=== PATIENT | male | born 1965 | race Caucasian/White ===

== ENCOUNTER 2024-02-11 13:48 | Observation (INO) | payer OTHER, SELFPAY ==
[2024-02-11] VITALS (12 sets, daily range): BP systolic 131–168; BP diastolic 75–95; PULSE 61–77; RESP 15–24; TEMP 35.9–36.8; O2SAT 95–100; BMI 31.1; BMI 30.4
[2024-02-11 14:13] LABS: Absolute Lymphocyte Count 3.08 X10^3/uL (0.83-4.51); Absolute Neutrophil Count 6.6 X10^3/uL (2.0-7.7); Basophil# 0.03 X10^3/uL; Basophil% 0.3 % (0-1); Eosinophil# 0.05 X10^3/uL; Eosinophils% 0.5 % (0-5); Hematocrit 43.8 % (40-54); Hemoglobin 14.9 g/dL (13.0-16.5); Lymphocyte # 3.08 X10^3/ul (0.83-4.51); Lymphocyte % 28.9 % (19-41); Mean Corpuscular Hgb 29.4 pg (27.0-32.0); Mean Corpuscular Volume 86.4 fL (80-94); Mean Platelet Vol. 10.1 fl (6.2-12.0); Monocyte# 0.82 X10^3/uL; Monocyte% 7.7 % (0-10); NRBC Flagged by Analyzer 0 % (0-5); Neutrophil # 6.62 X10^3/uL (2.7-7.7); Neutrophil % 62.1 % (47-70); Platelet Count 210 K/mm3 (150-450); RBC Distribution Width CV 13.1 % (11.6-14.6); Red Blood Count 5.07 M/mm3 (4.6-6.2); White Blood Count 10.7 K/mm3 (4.4-11.0)
[2024-02-11 14:25] LABS: Bedside Glucose 155 mg/dL (74-106)
[2024-02-11 14:29] LABS: Prothrombin Time (Protime)PT. 13.2 SECONDS (11.7-14.9)
[2024-02-11 14:30] LABS: Partial Thromboplast Time 24.7 Seconds (24.1-36.2)
[2024-02-11] MEDS: 0.9% Saline Lock 10 ML Syringe IV (14:31)
[2024-02-11 14:49] LABS: Anion Gap 8 (5-15); BUN 26 mg/dL (7-18); BUN/Creat Ratio 31.9 RATIO (10-20); Chloride 111 mmol/L (98-107); Creatinine, Serum 0.82 mg/dL (0.70-1.30); EST Glomerular Filtration Rate 102 mL/min (>60); Est Glom Filt Rate - Afr Amer 124 mL/min (>60); Glucose 156 mg/dL (74-106); Potassium 3.4 mmol/L (3.5-5.1); Sodium Level 141 mmol/L (136-145); Troponin-I HS 338 pg/mL (3.0-78.0)
[2024-02-11] MEDS: Aspirin 81 MG TAB.CHEW 324 MG PO (14:58)
[2024-02-11 15:31] LABS: Bacteria 0 SEEN /hpf (None Seen); Mucous, Urine 0 SEEN /hpf (<or=2+); Squamous Epithelial Cells - UA 0 SEEN /hpf (0-5)
[2024-02-11 15:35] LABS: Color, Urine Yellow (Yellow); Glucose, Dipstick Normal (Normal); Ketone-Dipstick 15 mg/dl (Negative); Leukocyte Esterase-Dipstick Negative /ul (Negative); Nitrite-Dipstick Negative (Negative); Occult Blood-Urine Negative /ul (Negative); Protein-Dipstick Negative (Negative); Urine Bilirubin Dipstick Negative (Negative); Urine Clarity Clear (Clear); Urine Urobilinogen Normal (Normal)
[2024-02-11 16:01] LABS: Phosphorus 2.8 mg/dL (2.5-4.9)
[2024-02-11 16:17] LABS: Red Blood Cells-Urine 0 SEEN /hpf (0-5); White Blood Cells 0-5 SEEN /hpf (0-5)
[2024-02-11 20:02] LABS: Hemoglobin A1c 6.5 % (3.8-5.6)
[2024-02-11 20:30] LABS: Troponin-I HS 387 pg/mL (3.0-78.0)
[2024-02-11] MEDS: Atorvastatin Calcium 80 MG Tablet PO (22:01)
[2024-02-12] VITALS (10 sets, daily range): BP systolic 141–154; BP diastolic 86–98; PULSE 66–95; RESP 14–18; TEMP 35.9–36.9; O2SAT 95–99; BMI 30.4
[2024-02-12] MEDS: Aspirin 81 MG TAB.CHEW PO (05:46)
[2024-02-12 06:24] LABS: Hematocrit 40.6 % (40-54); Hemoglobin 13.9 g/dL (13.0-16.5); Mean Corp Hgb Conc 34.2 g/dL (32-36); Mean Corpuscular Hgb 29.9 pg (27.0-32.0); Mean Corpuscular Volume 87.3 fL (80-94); Mean Platelet Vol. 10.6 fl (6.2-12.0); Platelet Count 191 K/mm3 (150-450); RBC Distribution Width CV 13.3 % (11.6-14.6); RBC Distribution Width SD 42.4 fl (35.1-43.9); Red Blood Count 4.65 M/mm3 (4.6-6.2); White Blood Count 7.4 K/mm3 (4.4-11.0)
[2024-02-12 06:56] LABS: Anion Gap 5 (5-15); BUN 25 mg/dL (7-18); BUN/Creat Ratio 39.3 RATIO (10-20); Calcium,Total 8.4 mg/dL (8.5-10.1); Chloride 110 mmol/L (98-107); Cholesterol 179 mg/dL (200); Creatinine, Serum 0.64 mg/dL (0.70-1.30); EST Glomerular Filtration Rate 137 mL/min (>60); Est Glom Filt Rate - Afr Amer 165 mL/min (>60); Estimated Creatinine Clearance 125.76 ml/min; Glucose 106 mg/dL (74-106); High Density Lipoprotein 71 mg/dL; Potassium 3.5 mmol/L (3.5-5.1); Sodium Level 140 mmol/L (136-145); Triglycerides 94 mg/dL; Very Low Density Lipoprotein 19 mg/dL (5-40)
[2024-02-12] MEDS: Acetaminophen 325 MG Tablet 650 MG PO (09:05)
== END 2024-02-12 14:28 | disposition home or self-care (01) ==
LOC: ED 14:58 → PCU 16:38
PROVIDERS: Admitting Provider Hospitalist; Emergency Provider Emergency Medicine; PCP Physician Assistant; Visit Provider Internal Medicine
DX: I42.8 Other cardiomyopathies (principal); R26.2 Difficulty in walking, not elsewhere classified; I44.7 Left bundle-branch block, unspecified; R11.0 Nausea; I10 Essential (primary) hypertension; R06.02 Shortness of breath; Z79.899 Other long term (current) drug therapy; H81.4 Vertigo of central origin; E66.9 Obesity, unspecified; Z68.30 Body mass index [BMI] 30.0-30.9, adult
CPT/HCPCS: 36415; 51702; 70450; 70496; 70498; 70551; 71045; 80048; 80061; 81001; 82962; 83036; 83735; 84100; 84443; 84484; 85025; 85027; 85610; 85730; 93005; 93306; 93458; 94762; 97162; 97802; 99152; 99153; 99221; 99285; J3101; J7040; Q9967; A4216; C1769; C1894; G0378

== ENCOUNTER 2024-03-05 15:23 | Emergency (ER) | payer SELFPAY ==
[2024-03-05 15:23] VITALS: BP 148/82; PULSE 121; RESP 24; TEMP 38.1; O2SAT 93
[2024-03-05 15:28] VITALS: O2SAT 97
--- NOTE | 2024-03-05 15:29 | EKG12_ITS ---
Test Reason : SOB Blood Pressure : */* mmHG Vent. Rate : 109 BPM Atrial Rate : 109 BPM P-R Int : 150 ms QRS Dur : 170 ms QT Int : 380 ms P-R-T Axes : 58 0 169 degrees QTcB Int : 511 ms Sinus tachycardia Possible Left atrial enlargement Left bundle branch block Abnormal ECG Confirmed by Carroll Levi ([id number]), photography editor DWAIN GONZALEZ ([id number]) on 03/08/2024 6:43:14 AM Referred By: Confirmed By: Carroll Levi
[2024-03-05 16:20] LABS: Absolute Lymphocyte Count 1.07 X10^3/uL (0.83-4.51); Absolute Neutrophil Count 8.3 X10^3/uL (2.0-7.7); Basophil# 0.04 X10^3/uL; Basophil% 0.4 % (0-1); Eosinophil# 0.05 X10^3/uL; Eosinophils% 0.5 % (0-5); Hematocrit 44.2 % (40-54); Hemoglobin 15.2 g/dL (13.0-16.5); Lymphocyte # 1.07 X10^3/ul (0.83-4.51); Lymphocyte % 10.7 % (19-41); Mean Corp Hgb Conc 34.4 g/dL (32-36); Mean Corpuscular Hgb 29.9 pg (27.0-32.0); Mean Corpuscular Volume 86.8 fL (80-94); Mean Platelet Vol. 9.6 fl (6.2-12.0); Monocyte# 0.47 X10^3/uL; Monocyte% 4.7 % (0-10); NRBC Flagged by Analyzer 0 % (0-5); Neutrophil # 8.27 X10^3/uL (2.7-7.7); Neutrophil % 83.1 % (47-70); Platelet Count 201 K/mm3 (150-450); RBC Distribution Width CV 12.8 % (11.6-14.6); RBC Distribution Width SD 40.6 fl (35.1-43.9); Red Blood Count 5.09 M/mm3 (4.6-6.2)
--- NOTE | 2024-03-05 16:20 | EX.ED.DYSGE1 ---
HPI History of Present Illness Chief Complaint: Shortness of Breath Informant: patient, spouse/S.O. and family Narrative Narrative: Presents here spouse and daughter worsening symptoms. Upper respiratory symptoms approximately past week productive sputum. Today while at work symptoms worsen he had to leave at noon. Reports myalgias with nausea. No vomiting no diarrhea. No urinary symptoms. He denies fevers however reports feeling cold. Denies sick contacts. They report he was hospitalized 3 weeks ago found to have cardiomyopathy with heart cath that had no intervention. He was placed on Coreg. He is already on lisinopril for history of hypertension. They report that they were told cardiomyopathy could have been from COVID few years ago. [facility] Medical History Non-ST elevated myocardial infarction Dizziness of unknown cause Abnormal EKG Dyspnea on exertion Home Medications ?Medication ?Instructions ?Recorded ?Last Taken ?Type soybean, fermented 2 cap PO DAILY natural blood 02/11/24 Unknown History thinner carvedilol 6.25 mg tablet 6.25 mg PO BID #60 tabs 02/12/24 Unknown Rx losartan 50 mg tablet 50 mg PO DAILY #30 tabs 02/12/24 Unknown Rx doxycycline monohydrate 100 mg 100 mg PO BID #14 CAPSULES 03/05/24 Unknown Rx capsule Allergy/AdvReac Type Severity Reaction Status Date / Time lisinopril Allergy Hives Verified 03/05/24 15:28 Surgical History No history of previous surgery Social History Smoking Status: Never smoker ROS ROS ED Constitutional Constitutional ED: Reports chills; Denies fever(s) or sweats Eyes Eyes: Denies change in vision ENT ENT ED: Denies dysphagia or sore throat Cardiovascular Cardiovascular: Denies chest pain, leg edema, palpitations or racing heartbeat Respiratory/Chest Respiratory/Chest: Reports cough; Denies dyspnea or dyspnea on exertion Gastrointestinal Gastrointestinal: Reports nausea; Denies abdominal pain, diarrhea or vomiting Genitourinary Genitourinary ED: Denies dysuria, hematuria or urinary frequency Musculoskeletal Musculoskeletal: Reports myalgias; Denies back pain, extremity pain or neck pain Integumentary Denies rash or wounds Neurologic Neurologic: Denies headache(s), paresthesias or weakness EXAM Physical Exam Const Vital Signs: 03/05/24 15:23 03/05/24 15:28 03/05/24 15:28 Temperature 100.6 F H Temperature Source Oral Pulse Rate 121 H Respiratory Rate 24 H Respiratory Effort Respiratory Depth Respiratory Pattern Blood Pressure 148/82 H Blood Pressure Mean 104 Pulse Ox 93 97 Oxygen Delivery Method Room Air Room Air Room Air 03/05/24 16:27 03/05/24 16:39 03/05/24 17:00 Temperature 101.3 F H 100.8 F H Temperature Source Oral Oral Pulse Rate 116 H 113 H Respiratory Rate 18 18 Respiratory Effort Short of Breath Respiratory Depth Normal Respiratory Pattern Normal Blood Pressure 149/82 H 133/79 H Blood Pressure Mean 104 97 Pulse Ox 97 93 Oxygen Delivery Method Room Air Room Air 03/05/24 19:15 Temperature 98 F Temperature Source Pulse Rate 81 Respiratory Rate 16 Respiratory Effort Respiratory Depth Respiratory Pattern Blood Pressure 92/70 Blood Pressure Mean 77 Pulse Ox 94 Oxygen Delivery Method Positive well nourished and well developed Constitutional Narrative: Nontoxic. Fatigued General Appearance ED: well developed HEENT Reports moist mucous membranes normocephalic and atraumatic Eyes EOMs intact bilaterally and conjunctivae normal General Eye ED: Yes normal appearance of both eyes Neck no lymphadenopathy and supple General: Negative for tenderness Chest Wall Chest: Negative for tenderness Resp normal respiratory effort and normal air movement Effort and Inspection: symmetric chest movement; Negative for respiratory distress Cardio regular rhythm and no murmurs Rate: tachycardic Peripheral Pulses: pulses 2+ throughout GI normal to inspection, nondistended, normoactive bowel sounds and non-tender Palpation: Negative for guarding or rebound tenderness present Back/Spine no CVA tenderness and no thoracic nor lumbar tenderness Extremity normal to inspection General Extremety ED: Negative for edema or tenderness General Extremity: Negative for edema Neuro oriented x3 and no sensory deficits noted Sensorium / Orientation: awake and alert Skin no rashes or lesions noted and no wounds MDM MDM MDM Narrative Medical decision making narrative: Interventions / MDM: Differential diagnosis: Pneumonia Diagnosis considered but do not suspect: ACS however EKG and cardiac enzymes negative. My EKG interpretation: Sinus rate of 109, no ST changes, there is left bundle branch block similar to previous. Imaging independently reviewed and interpreted by myself: 1 view chest x-ray bibasilar lobe pneumonia. External documents reviewed: 02/12/2024. Cardiac cath normal coronary arteries EF of 15%. Test considered but not ordered:N/A ED course: Patient low-grade fever 100.6 tachycardic slight tachypnea. Nursing protocol initially some orders, added sepsis labs as he meets SIRS criteria. He has had more of a cough and increasing myalgias today. Chest x-ray, respiratory swabs. Tylenol ordered Zofran ordered. 1800: Chest x-ray lower lobe pneumonia white count normal lactic acid normal. Urine negative for infection. Potassium was 3.1 sodium 138. Creatinine 1.06. Oral potassium ordered. Blood cultures are in the lab and pending. Slight elevation in AST ALT at 70 and 72 respectively. COVID, influenza, RSV negative. Patient was ambulated pulse ox 91 to 92%. He states he was not short of breath. Meet SIRS criteria with pneumonia. Normal lactic acid. Is not clinically septic. Considered admission with the patient, however he states he would like to be treated at home. At this time with pulse ox above 88 with no dyspnea, I do feel this is reasonable. He was given IV doxycycline for coverage. He will be continued on doxycycline. He will continue Tylenol as needed for fever. He will continue oral fluids. Return precaution discussed. All questions were answered. Re-evaluation: stable Disposition discussed with patient/family/significant other: Patient and family Case discussed with consulting clinician: N/A This note was generated with [employer] dictation software. It may contain incorrect words, spelling, and punctuation that were not noted in checking the note before signing. Lab Data Attestation: I reviewed the patient's lab results. Labs: Laboratory Results - last 24 hr 03/05/24 03/05/24 16:13 16:35 WBC 10.0 RBC 5.09 Hgb 15.2 Hct 44.2 MCV 86.8 MCH 29.9 MCHC 34.4 RDW Std Deviation 40.6 RDW Coeff of Janet 12.8 Plt Count 201 MPV 9.6 Immature Gran % (Auto) 0.600 Neut % (Auto) 83.1 H Lymph % (Auto) 10.7 L Fannin % (Auto) 4.7 Eos % (Auto) 0.5 Baso % (Auto) 0.4 Absolute Neuts (auto) 8.3 H Absolute Lymphs (auto) 1.07 Nucleated RBC % 0 PT 13.9 INR 1.1 APTT 26.5 Sodium 138 Potassium 3.1 L Chloride 105 Carbon Dioxide 26.0 Anion Gap 7 BUN 21 H Creatinine 1.06 Est GFR (MDRD) Af Amer 92 Est GFR (MDRD) Non-Af 76 BUN/Creatinine Ratio 19.8 Glucose 153 H Lactic Acid 1.4 Calcium 8.7 Total Bilirubin 0.60 Direct Bilirubin 0.19 AST 70 H ALT 72 H Alkaline Phosphatase 63 Troponin I High Sens 44 Total Protein 6.3 L Albumin 3.3 Globulin 3.0 Procalcitonin 0.36 H Urine Color Yellow Urine Clarity Clear Urine pH 6.0 Ur Specific [place] 1.010 Urine Protein Negative Urine Glucose (UA) Normal Urine Ketones Negative Urine Occult Blood Negative Urine Nitrite Negative Urine Bilirubin Negative Urine Urobilinogen Normal Ur Leukocyte Esterase Negative Urine RBC 0 SEEN Urine WBC 0-5 SEEN Ur Squamous Epith Cells 0 SEEN Urine Bacteria 0 SEEN Urine Mucus 0 SEEN Radiography Diagnostic Testing: Clinical Impression(s) from Imaging Studies Chest X-Ray 03/05/24 16:35 IMPRESSION: Bilateral lower lobe infiltrates Electronically Signed: Escobar Calderon MD at 17:02 EST Reading Location ID and State: [address] [place] [address] Tel , Service support , Discharge Plan Triage Chief Complaint: Shortness of Breath ED Provider: Hector Turcios Dx/Rx/DC Orders Clinical Impression: Pneumonia, Fever, Cough, Left bundle branch block, Hypokalemia Instructions: ED Fever Control (Adult), ED Pneumonia (Adult) Prescriptions: New doxycycline monohydrate 100 mg capsule 100 mg PO BID Qty: 14 0RF No Action soybean, fermented [Nattokinase] 2 cap PO DAILY carvedilol 6.25 mg tablet 6.25 mg PO BID Qty: 60 1RF Rx Instructions: must administer with a meal/food losartan 50 mg tablet 50 mg PO DAILY Qty: 30 1RF Stand Alone Forms: ED Work / School Excuse Primary Care Provider: Maurice Vegas Referrals: Maurice Vegas PA-C [Primary Care Provider] - 3-5 Days Activity Restrictions/Additional Instructions: X-ray with lower lobe pneumonia. Your white count normal. COVID, flu, RSV negative. Take and finish antibiotic as prescribed. Continue Tylenol as needed for fever. Continue oral fluids for hydration. You develop worsening dyspnea, return to the ED for reevaluation. Print Language: Romansh Disposition Disposition: Home, Self Care Discharge Date/Time: 03/05/24 19:44
[2024-03-05 16:27] VITALS: BP 149/82; PULSE 116; RESP 18; TEMP 38.5; O2SAT 97
--- NOTE | 2024-03-05 16:35 | RAD_ITS ---
STUDY: X-RAY CHEST REASON FOR EXAM: Male, 58 years old. SOB TECHNIQUE: AP portable COMPARISON: February 11, 2024 FINDINGS: Bibasilar infiltrates.. There is no demonstrated pleural abnormality. Heart is enlarged.. Normal mediastinum and rosette. Normal visualized pulmonary arteries. Normal visualized aortic arch and descending thoracic aorta. Dorsal spine demonstrates degenerative change. Normal visualized ribs, clavicles, and shoulders. There is no demonstrated abnormality of the visualized soft tissue structures of the upper abdomen. RAD/Chest 1 View (Portable) IMPRESSION: Bilateral lower lobe infiltrates Electronically Signed: Escobar Calderon MD at 17:02 EST ,
[2024-03-05 16:37] LABS: Anion Gap 7 (5-15); BUN 21 mg/dL (7-18); BUN/Creat Ratio 19.8 RATIO (10-20); Calcium,Total 8.7 mg/dL (8.5-10.1); Chloride 105 mmol/L (98-107); Creatinine, Serum 1.06 mg/dL (0.70-1.30); EST Glomerular Filtration Rate 76 mL/min (>60); Est Glom Filt Rate - Afr Amer 92 mL/min (>60); Glucose 153 mg/dL (74-106); Potassium 3.1 mmol/L (3.5-5.1); Sodium Level 138 mmol/L (136-145); Troponin-I HS 44 pg/mL (3.0-78.0)
[2024-03-05 16:40] LABS: AST(SGOT) 70 U/L (15-37); Alanine Aminotransfer ALT/SGPT 72 U/L (16-61); Albumin, Serum 3.3 g/dL (3.2-5.0); Alkaline Phosphatase 63 U/L (45-117); Bilirubin, Direct 0.19 mg/dL (0.00-0.30); Protein, Total 6.3 g/dL (6.4-8.2)
[2024-03-05 16:47] LABS: Bacteria 0 SEEN /hpf (None Seen); Mucous, Urine 0 SEEN /hpf (<or=2+); Red Blood Cells-Urine 0 SEEN /hpf (0-5); Squamous Epithelial Cells - UA 0 SEEN /hpf (0-5)
[2024-03-05 16:52] LABS: Color, Urine Yellow (Yellow); Glucose, Dipstick Normal (Normal); Ketone-Dipstick Negative (Negative); Leukocyte Esterase-Dipstick Negative /ul (Negative); Nitrite-Dipstick Negative (Negative); Occult Blood-Urine Negative /ul (Negative); Protein-Dipstick Negative (Negative); Urine Bilirubin Dipstick Negative (Negative); Urine Clarity Clear (Clear); Urine Urobilinogen Normal (Normal)
[2024-03-05 17:00] VITALS: BP 133/79; PULSE 113; RESP 18; TEMP 38.2; O2SAT 93
[2024-03-05 17:02] LABS: International Normalized Ratio 1.1; Prothrombin Time (Protime)PT. 13.9 SECONDS (11.7-14.9)
[2024-03-05 17:03] LABS: Partial Thromboplast Time 26.5 Seconds (24.1-36.2)
[2024-03-05 17:07] LABS: White Blood Cells 0-5 SEEN /hpf (0-5)
[2024-03-05] MEDS: Acetaminophen 500 MG Tablet 1000 MG PO (17:14)
[2024-03-05] MEDS: Ondansetron 4 MG/2 ML Vial IV (17:14)
[2024-03-05 17:15] LABS: Procalcitonin 0.36 ng/mL (0.00-0.09)
[2024-03-05 17:19] LABS: Lactic Acid 1.4 mmol/L (0.4-1.9)
[2024-03-05 17:59] VITALS: O2SAT 92
[2024-03-05] MEDS: Doxycycline 100 MG in Dextrose 5%-Water (250mL Bag) 250 ML 250 MG IV (18:27)
[2024-03-05] MEDS: Potassium Chloride Oral Tablet 20 MEQ 40 MEQ PO (18:29)
[2024-03-05 19:15] VITALS: BP 92/70; PULSE 81; RESP 16; TEMP 36.6; O2SAT 94
== END 2024-03-05 19:44 | disposition home or self-care (01) ==
PROVIDERS: Emergency Provider Emergency Medicine; PCP Physician Assistant; Visit Provider Emergency Medicine
DX: J18.9 Pneumonia, unspecified organism (principal); I44.7 Left bundle-branch block, unspecified; E87.6 Hypokalemia; I10 Essential (primary) hypertension; I25.2 Old myocardial infarction; Z79.899 Other long term (current) drug therapy; Z86.16 Personal history of COVID-19
CPT/HCPCS: 71045; 80048; 80076; 81001; 83605; 84145; 84484; 85025; 85610; 85730; 87040; 87631; 93005; 94760; 96365; 96375; 99283; A4216; J2405

== ENCOUNTER → 2024-03-19 | Outpatient (CLI) | payer SELFPAY ==
[2024-03-19 14:52] LABS: Anion Gap 5 (5-15); BUN 17 mg/dL (7-18); BUN/Creat Ratio 22.5 RATIO (10-20); Calcium,Total 8.9 mg/dL (8.5-10.1); Chloride 111 mmol/L (98-107); Creatinine, Serum 0.76 mg/dL (0.70-1.30); EST Glomerular Filtration Rate 112 mL/min (>60); Est Glom Filt Rate - Afr Amer 135 mL/min (>60); Glucose 111 mg/dL (74-106); Potassium 3.6 mmol/L (3.5-5.1); Sodium Level 141 mmol/L (136-145)
== END | disposition home or self-care (01) ==
PROVIDERS: PCP Physician Assistant; Referring Provider Internal Medicine Cardiovascular Disease; Visit Provider Internal Medicine Cardiovascular Disease
DX: I42.9 Cardiomyopathy, unspecified (principal)
CPT/HCPCS: 36415; 80048; A4216

== ENCOUNTER → 2024-07-29 | Outpatient (CLI) | payer SELFPAY ==
--- NOTE | 2024-07-29 12:48 | ECHOL_ITS ---
Reason For Study Reason For Study: CARDIOMYOPATHY Procedure This was a limited 2D transthoracic echocardiogram. Myocardial strain analysis was performed in this exam to aid in the assessment of cardiac function. Exam performed in department. Left Ventricle Severely dilated left ventricle. Mild concentric left ventricular hypertrophy. The left ventricular ejection fraction is 20 %. There is severe global hypokinesis of the left ventricle. Right Ventricle Normal RV size. Normal systolic function. Atria The left atrium is mildly enlarged. Normal right atrium. Mitral Valve Normal mitral valve. Tricuspid Valve Normal tricuspid valve. Aortic Valve Trisinus/trileaflet aortic valve. Pulmonic Valve Normal pulmonic valve. Great Vessels Normal aortic root. The pulmonary artery is normal size. Inferior vena cava collapse with respiration. Pericardium/Pleural No pericardial effusion. MMode/2D Measurements & Calculations LVIDd: 7.0 cm IVSd: 1.4 cm Ao root diam: 3.7 cm LVIDs: 6.3 cm LVPWd: 1.4 cm RVDd: 3.4 cm FS: 9.1 % LAV(MOD-bp): 83.0 ml LVAd ap4: 63.7 cm2 LVAd ap2: 62.0 cm2 LAV(MOD-bp) Indexed: 42.4 ml/m2 LVLd ap4: 11.0 cm LVLd ap2: 11.2 cm LAV(MOD-sp2): 77.4 ml EDV(MOD-sp4): 299.0 ml EDV(MOD-sp2): 295.8 ml LAV(MOD-sp4): 85.4 ml EDV(sp4-el): 312.2 ml EDV(sp2-el): 292.1 ml LVAs ap4: 52.1 cm2 LVAs ap2: 51.3 cm2 LVLs ap4: 9.7 cm LVLs ap2: 10.5 cm ESV(MOD-sp4): 233.5 ml ESV(MOD-sp2): 217.7 ml ESV(sp4-el): 238.7 ml ESV(sp2-el): 213.1 ml EF(MOD-sp4): 21.9 % EF(MOD-sp2): 26.4 % EF(sp4-el): 23.5 % SV(MOD-sp4): 65.5 ml SV(MOD-sp2): 78.0 ml SV(sp4-el): 73.5 ml SI(MOD-sp4): 33.4 ml/m2 SI(MOD-sp2): 39.9 ml/m2 LA A4 area: 24.9 cm2 LA dimension(2D): 4.4 cm RA A4 area: 16.1 cm2 ECHO/Echo, Limited Study Interpretation Summary Severely dilated left ventricle. The left ventricular ejection fraction is 20 %. There is severe global hypokinesis of the left ventricle. The left atrium is mildly enlarged. Mild concentric left ventricular hypertrophy. Ordering Physician: Viola^Bryan^Margarita^^STRATEGY CONSULTANT, STRATEGY CONSULTANT-C Referring Physician: Maurice Vegas Performed By: Marybeth Chavarria RDCS, RVT
== END | disposition home or self-care (01) ==
PROVIDERS: PCP Physician Assistant; Referring Provider Nurse Practitioner Family; Visit Provider Nurse Practitioner Family
DX: I42.9 Cardiomyopathy, unspecified (principal); I44.7 Left bundle-branch block, unspecified; I10 Essential (primary) hypertension
CPT/HCPCS: 93308